=== PATIENT | female | born 1960 | race Caucasian/White ===

== ENCOUNTER 2016-12-18 20:07 | Emergency (ER) | payer MEDICARE, BC, OTHER ==
[2016-12-18 21:06] LABS: BASO % 0.4 % (0.1-1.2); EOS # 0.1 10_X3_uL (0.0-0.4); EOS % 2.9 % (0.7-5.8); GRAN # 3.5 10_X3_uL (1.6-6.1); GRAN % 72.8 % (34.0-71.1); HEMATOCRIT 42.5 % (34-45); HEMOGLOBIN 14.2 g/dL (11.2-15.7); LYMPH # 0.7 10_X3_uL (1.2-3.7); LYMPH % 14.4 % (19.3-51.7); MEAN CORPUSCULAR HEMOGLOBIN 33.1 pg (27.0-33.0); MEAN CORPUSCULAR HGB CONC 33.4 g/dL (32.0-36.0); MEAN CORPUSCULAR VOLUME 99.1 fL (79-95); MONO # 0.5 10_X3_uL (0.2-0.9); MONO % 9.5 % (4.7-12.5); PLATELET COUNT 179 x10_3/uL (182-369); RED BLOOD COUNT 4.29 x10_6/uL (3.9-5.2); RED CELL DISTRIBUTION WIDTH 13.9 % (11.7-14.4); WHITE BLOOD COUNT 4.9 x10_3/uL (4.0-10.0)
[2016-12-18 21:26] LABS: BLOOD UREA NITROGEN 7 mg/dL (7-18); CARBON DIOXIDE 32 mmol/L (21-32); CREATININE 0.7 mg/dL (0.6-1.3); GLUCOSE,RANDOM 109 mg/dL (70-99); SODIUM 139 mmol/L (136-145)
[2016-12-18 21:37] LABS: THYROID STIMULATING HORMONE 10.36 uIU/mL (0.34-4.82)
[2016-12-18 21:38] LABS: FREE T4 1.06 ng/dL (0.93-1.7)
== END 2016-12-18 22:55 | disposition home or self-care (01) ==
LOC: ER 20:07
PROVIDERS: Emergency Medicine
DX: I95.1 Orthostatic hypotension (principal); R94.6 Abnormal results of thyroid function studies; G70.00 Myasthenia gravis without (acute) exacerbation; R53.1 Weakness; R05 Cough; Z85.818 Personal history of malignant neoplasm of other sites of lip, oral cavity, and pharynx; F17.210 Nicotine dependence, cigarettes, uncomplicated; Z79.899 Other long term (current) drug therapy
CPT/HCPCS: 36415; 80048; 84439; 84443; 84481; 85025; 93005; 99070; 99284; 99284-25; J7040